=== PATIENT | female | born 1955 | race Caucasian/White ===

== ENCOUNTER 2022-06-15 14:45 | Inpatient (IN) | payer OTHER, MEDICAID ==
[~2022-06-15] VITALS: Ht 167.6 cm; Wt 91.4 kg
[2022-06-15] MEDS ORDERED: ACETAMINOPHEN 500 MG TABLET PO ONE (15:15)
[2022-06-15] MEDS ORDERED: KETOROLAC TROMETHAMINE 30 MG/ML VIAL IM ONE (15:15)
[2022-06-15 16:47] LABS: BASOPHILS % (AUTO) 0.5 % (0.0-2.0); EOSINOPHILS % (AUTO) 2.8 % (1.0-6.0); HEMATOCRIT 31.2 % (36-46); HEMOGLOBIN 10.4 g/dL (12.0-16.0); LYMPHOCYTES # (AUTO) 1.7 K/uL (1.0-4.8); LYMPHOCYTES % (AUTO) 17.7 % (22.0-44.0); MEAN CORPUSCULAR HEMOGLOBIN 29.1 pg (26.0-34.0); MEAN CORPUSCULAR HGB CONC 33.3 G/dL (31.0-37.0); MEAN CORPUSCULAR VOLUME 88 fL (80-100); MONOCYTES # (AUTO) 0.7 K/uL (0.1-1.0); MONOCYTES % (AUTO) 7.2 % (2.0-9.0); NEUTROPHILS # (AUTO) 6.9 K/uL (1.8-7.7); NEUTROPHILS % (AUTO) 71.8 % (40.0-70.0); PLATELET COUNT (AUTO) 302 K/uL (150-450); RED BLOOD CELL COUNT(AUTO) 3.56 MIL/uL (4.00-5.20); RED CELL DISTRIBUTION WIDTH 17.1 % (11.5-14.5)
[2022-06-15 17:00] LABS: CALCIUM, TOTAL 8.1 mg/dL (8.8-10.5); CREATININE 1.67 mg/dL (0.60-1.30); POTASSIUM 3.5 mmol/L (3.5-5.1)
[2022-06-15 17:06] LABS: BILIRUBIN,TOTAL 0.2 mg/dL (0.1-1.0); MAGNESIUM 1.7 mg/dL (1.80-2.40); PHOSPHORUS 3.7 mg/dL (2.5-4.9); TOTAL PROTEIN, SERUM 6.9 g/dL (6.4-8.2)
[2022-06-15] MEDS ORDERED: OxyCODONE HCL 5 MG IR TABLET PO ONE (17:15)
[2022-06-15 18:52] LABS: AMPHET/METH SCREEN,URINE NEGATIVE (NEGATIVE); BARBITURATE SCREEN, URINE NEGATIVE (NEGATIVE); BENZODIAZEPINES SCREEN,URINE NEGATIVE (NEGATIVE); CANNABINOID SCREEN,URINE NEGATIVE (NEGATIVE); COCAINE SCREEN,URINE NEGATIVE (NEGATIVE); METHADONE SCREEN, URINE NEGATIVE (NEGATIVE); OPIATE SCREEN,URINE POSITIVE (NEGATIVE)
[2022-06-15 18:53] LABS: PHENCYCLIDINE SCREEN,URINE NEGATIVE (NEGATIVE)
[2022-06-15 19:30] LABS: COVID AG,FIA SOURCE NASOPHARYNGEAL
[2022-06-15] MEDS ORDERED: LORazepam 2 MG TABLET PO PRN (22:15)
[2022-06-15] MEDS ORDERED: ZOLPIDEM TARTRATE 10 MG TABLET PO PRN (22:15)
[2022-06-15] MEDS ORDERED: HALOPERIDOL 5 MG TABLET PO PRN (22:15)
[2022-06-16] MEDS ORDERED: ACETAMINOPHEN 325 MG TABLET PO ONE (02:45)
[2022-06-16 12:03] VITALS: BP 160/100
[2022-06-16] MEDS ORDERED: HydrOXYzine HCL 25 MG TABLET PO PRN (14:30)
[2022-06-16 15:41] LABS: GLUCOMETER DEV NAME(LOC) BV2S.; GLUCOSE,POINT OF CARE 96 MG/DL (70-110)
[2022-06-16 16:39] VITALS: BP 168/91
[2022-06-16] MEDS: METOPROLOL TARTRATE 25 MG TABLET PO SCH (16:39)
[2022-06-16 20:03] VITALS: BP 140/90
[2022-06-16] MEDS: TraMADol HCL 50 MG TABLET PO PRN (20:03)
[2022-06-17] MEDS: PredniSONE 20 MG TABLET PO SCH (07:07)
[2022-06-17] MEDS ORDERED: IBUPROFEN 400 MG TABLET PO PRN (07:15)
[2022-06-17] MEDS ORDERED: PETROLATUM,WHITE 28 GM JELLY TP PRN (07:15)
[2022-06-17] MEDS ORDERED: GuaiFENesin/D-METHORPHAN [SUGAR-FREE] 200-20MG/10 ML SYRUP UDCUP PO PRN (07:15)
[2022-06-17] MEDS ORDERED: ONDANSETRON HCL 4 MG TABLET PO PRN (07:15)
[2022-06-17] MEDS ORDERED: NICOTINE 14 MG/24 HOUR PATCH TD PRN (07:15)
[2022-06-17] MEDS ORDERED: ACETAMINOPHEN 325 MG TABLET PO PRN (07:15)
[2022-06-17] MEDS ORDERED: MAGNESIUM HYDROXIDE SUSPENSION 30 ML UDCUP PO PRN (07:15)
[2022-06-17] MEDS ORDERED: ALBUTEROL SULFATE HFA 90 MCG/PUFF 8 GM INHALER IH PRN (07:15)
[2022-06-17] MEDS ORDERED: DOCUSATE SODIUM 100 MG CAPSULE PO PRN (07:15)
[2022-06-17] MEDS ORDERED: CloNIDine HCL 0.1 MG TABLET PO PRN (07:15)
[2022-06-17] MEDS ORDERED: MAG HYDROX/AL HYDROX/SIMETH ES 30 ML SUSPENSION UDCUP PO PRN (07:15)
[2022-06-17] MEDS ORDERED: LOPERAMIDE HCL 2 MG CAPSULE PO PRN (07:15)
[2022-06-17] MEDS: HYDROCHLOROTHIAZIDE 25 MG TABLET PO SCH (08:30)
[2022-06-17] MEDS: METOPROLOL TARTRATE 25 MG TABLET PO SCH ×2 (08:30→16:49)
[2022-06-17] MEDS: HYDROCORTISONE 1% 30 GM OINTMENT TP SCH (08:32)
[2022-06-17] MEDS: TraMADol HCL 50 MG TABLET PO PRN ×2 (08:39→17:00)
[2022-06-17 10:00] VITALS: BP 154/77
[2022-06-17 20:27] VITALS: BP 147/83
[2022-06-18] MEDS: TraMADol HCL 50 MG TABLET PO PRN ×2 (05:28→13:45)
[2022-06-18] MEDS: PredniSONE 20 MG TABLET PO SCH (06:32)
[2022-06-18 08:48] VITALS: BP 126/85
[2022-06-18] MEDS ORDERED: AmLODIPine BESYLATE 2.5 MG TABLET PO SCH (09:00)
[2022-06-18] MEDS: METOPROLOL TARTRATE 25 MG TABLET PO SCH ×2 (09:17→16:42)
[2022-06-18] MEDS: HYDROCHLOROTHIAZIDE 25 MG TABLET PO SCH (09:17)
[2022-06-18] MEDS: HYDROCORTISONE 1% 30 GM OINTMENT TP SCH (09:18)
[2022-06-18] MEDS ORDERED: HYDR25TA PO (11:01)
[2022-06-18] MEDS ORDERED: AMLO2.5T96 PO (11:01)
[2022-06-18] MEDS ORDERED: METO25 PO (11:01)
== END 2022-06-18 16:40 | disposition home or self-care (01) | DRG 885 ==
LOC: EMS 14:45 → B2S 06-16 07:28
PROVIDERS: ADMIT Psychiatry & Neurology Psychiatry; ATTEND Psychiatry & Neurology Psychiatry
DX: F33.2 Major depressive disorder, recurrent severe without psychotic features (principal); N17.9 Acute kidney failure, unspecified; R45.851 Suicidal ideations; Z20.822 Contact with and (suspected) exposure to COVID-19; I10 Essential (primary) hypertension; M19.041 Primary osteoarthritis, right hand; F90.9 Attention-deficit hyperactivity disorder, unspecified type; D64.9 Anemia, unspecified; F10.10 Alcohol abuse, uncomplicated; Y90.8 Blood alcohol level of 240 mg/100 ml or more; G89.29 Other chronic pain; Z88.8 Allergy status to other drugs, medicaments and biological substances
CPT/HCPCS: 70551; 72141; 80053; 82550; 82962; 83036; 83735; 84100; 85025; 87081; 93971; 99285; G0480; J1885